=== PATIENT | male | born 1970 | race Hispanic/Latino ===

== ENCOUNTER → 2021-04-19 | Outpatient (CLI) | payer BC | LOC: RAD 15:22 | PROVIDERS: ATTEND Podiatrist Foot & Ankle Surgery | DX: M79.604 Pain in right leg (principal) | CPT/HCPCS: 93971 ==

== ENCOUNTER 2024-10-10 13:08 | Day surgery (SDC) | payer BC ==
[2024-10-10] VITALS (11 sets, daily range): BP systolic 109–141; BP diastolic 64–78; PULSE 60–81; RESP 11–20; TEMP 97.2–97.7; O2SAT 96–99
[~2024-10-10] VITALS: Ht 193 cm; Wt 131.5 kg
[~2024-10-10 13:08] MED LIST: AMITRIPTYLINE H25 MG PO; FENOFIBRATE160 MG PO; HEPARIN SOD (PORCINE) 1000 UNIT/ML 30ML ONE; HEPARIN SOD/SOD CHLORIDE 2,000 ML ONE; IOPAMIDOL 370 MG/ML 100 ML INFUS..BTL INJ ONE; JARDIANCE25 MG PO; LASIX40 MG PO; LIDOCAINE HCL 2% LOCAL 20 ML VIAL ONE; NEURONTIN300 MG PO; NITROGLYCERIN/D5W 200 MCG/ML 250 ML ONE; ROSUVASTATIN CA40 MG PO; SODIUM CHLORIDE 0.9% 1000ML 1,000 ML ONE; TOUJEO MAX300 UNIT/1; VERAPAMIL HCL 2.5 MG/ML 2 ML VIAL ONE
[2024-10-10 14:23] LABS: BASOPHILS % 0.5 % (0.0-1.0); EOSINOPHILS % 0.8 % (0.0-6.0); LYMPHOCYTES % 32.9 % (18.0-39.1); MONOCYTES % 6.0 % (4.4-11.3); NEUTROPHILS % 59.5 % (38.7-80.0); RED CELL DISTRIBUTION WIDTH 12.9 % (11.7-14.4)
[2024-10-10 14:30] LABS: INR 0.85
[2024-10-10] MEDS ORDERED: MIDAZOLAM HCL 2 MG/2 ML VIAL ONE ×2 (14:35→15:02)
[2024-10-10] MEDS ORDERED: FENTANYL CITRATE/PF 100MCG/2 ML INJ ONE (14:36)
[2024-10-10 14:39] LABS: EST GLOMERULAR FILTRATION RATE 52.0 ML/MIN (>=60)
== END 2024-10-10 18:00 | disposition home or self-care (01) ==
LOC: CATH LAB 13:08
PROVIDERS: ATTEND Internal Medicine Cardiovascular Disease
DX: I25.10 Atherosclerotic heart disease of native coronary artery without angina pectoris (principal); R94.39 Abnormal result of other cardiovascular function study; I10 Essential (primary) hypertension; E78.5 Hyperlipidemia, unspecified; E11.9 Type 2 diabetes mellitus without complications; Z79.84 Long term (current) use of oral hypoglycemic drugs; Z79.4 Long term (current) use of insulin; Z79.899 Other long term (current) drug therapy
CPT/HCPCS: 36415; 76937; 80053; 85025; 85610; 93458; C1887; J1644; J2003; J2250; J3010; J7030; Q9967; 99152; 99153